=== PATIENT | female | born 1955 | race Caucasian/White ===

== ENCOUNTER 2016-09-13 12:02 | Emergency (ER) | payer MEDICAID, OTHER ==
[~2016-09-13] VITALS: Wt 71.0 kg
[2016-09-13] MEDS ORDERED: IBUP-1542 PO (12:59)
--- NOTE | 2016-09-13 13:10 | ERD ---
ER Documentation Chief Complaint Date/Time DATE: 09/13/16 TIME: 13:03 Chief Complaint left elbow and right knee pain after mechanical fall yesterday HPI 61-year-old female complaining of pain in her left elbow and right knee. Patient stated that she felt at home earlier today. She landed on her left elbow and right knee. She is able to bear weight and walk, with slight pain in the right knee. She is unable to move her left elbow because of pain. Patient reports noticing slight blood from the left nostril, she does not remember whether she had had in the fall. She denies loss of consciousness. Denies any prior medical history. ROS All systems reviewed and are negative except as per history of present illness. Medications Home Meds Active Scripts Ibuprofen* (Motrin*) 600 Mg Tab, 600 MG PO Q6H Y for PAIN AND OR ELEVATED TEMP, #30 TAB Prov:PAOLO FARRIS. ASSURANCE MANAGER 09/13/16 PMhx/Soc Medical and Surgical Hx: pt denies Medical Hx, pt denies Surgical Hx Hx Alcohol Use: No Hx Substance Use: No Hx Tobacco Use: No Smoking Status: Never smoker Physical Exam Vitals Vital Signs Date Time Temp Pulse Resp B/P Pulse Ox O2 Delivery O2 Flow Rate FiO2 09/13/16 12:08 98.0 71 18 171/80 99 Physical Exam General impression: Well-developed, well-nourished. Alert, oriented, in no acute distress Head: Normocephalic, atraumatic. Nasal bridge and orbits nontender. No step -offs, la signs or raccoon eyes. Eyes: PERRL, EOM normal. Sclerae are normal. Conjunctiva not injected. ENT: External canals patent. TM'sclear. Nasal mucosa, oral mucosa and oropharynx are normal. Very minor abrasion noted at the left nostril. Neck: Supple, nontender. No lymphadenopathy. No nuchal rigidity. Respiration: Normal respiratory effort. Lungs clear to auscultate bilaterally. No wheezes, rales or rhonchi. Cardiovascular: Regular rate and rhythm. No murmurs or extra heart sounds. Abdomen: Abdomen normal to inspection. Nontender. No masses or organomegaly. Bowel sounds normal. Back: Normal to inspection. No midline spine tenderness. No CVA tenderness. Extremities: 1 cm superficial abrasion noted on the superior aspect of the right knee. Bilateral knee nontender to palpation, normal range of motion. Left elbow slightly swollen, tender, in flexed position. Unable to extend fully due to pain. Neuro: Mental status normal, speech normal. MECHANICAL TEST ENGINEER grossly intact. Skin: Normal turgor. No rash or lesions. Psych: Normal mood and affect. Results 24 hrs PROCEDURE: XR Elbow. CLINICAL INDICATION: Trauma, left elbow pain TECHNIQUE: AP, lateral and oblique views of the left elbow performed. COMPARISON: None. FINDINGS: A large elbow joint effusion is present. No definite radiographic evidence of fracture is seen but cannot exclude occult fracture. Alignment is normal. IMPRESSION: 1. Large elbow joint effusion. Cannot exclude occult fracture in the setting of trauma, though no definite fracture is visualized. Recommend follow-up radiographs in 10-14 days for further evaluation, could also consider CT or MRI as clinically warranted. RPTAT: UU .Misael Brandon MD, MD Date Time Electronically viewed and signed by .Misael Brandon MD, MD on 09/13/2016 14: 34 .K/ CC: PAOLO FARRIS. NELDA Procedures/MDM Well-appearing 61-year-old female complaining of left elbow and right knee pain after fall. Her right knee exams are unremarkable, I doubt fractures or dislocations. X-ray of left elbow was obtained. X-rays showed large left elbow effusion, suspicious for occult fracture. Left elbow was immobilized with a long-arm splint. Patient was noted to be comfortable and neurovascularly intact both before and after the immobilization. Patient advised to follow-up with PCP for a [facility] referral. Patient appears well, stable for discharge and outpatient management. Medical decision making shared with patient and family. Education provided to patient and family. Patient and family expressed understanding of the plan. Medications on discharge: Ibuprofen. Follow-up: Primary care provider in 2-3 days or return to ED if worse. Departure Condition: Good Patient Instructions: Fall Prevention PAOLO FARRIS NP Sep 13, 2016 13:10
--- NOTE | 2016-09-13 14:34 | RADRPT ---
PROCEDURE: XR Elbow. CLINICAL INDICATION: Trauma, left elbow pain TECHNIQUE: AP, lateral and oblique views of the left elbow performed. COMPARISON: None. FINDINGS: A large elbow joint effusion is present. No definite radiographic evidence of fracture is seen but cannot exclude occult fracture. Alignment is normal. IMPRESSION: 1. Large elbow joint effusion. Cannot exclude occult fracture in the setting of trauma, though no d efinite fracture is visualized. Recommend follow-up radiographs in 10-14 days for further evaluatio n, could also consider CT or MRI as clinically warranted. RPTAT: UU .Misael Brandon MD, MD Date Time Electronically viewed and signed by .Misael Brandon MD, on 09/13/2016 14:34 .K/
== END 2016-09-13 16:11 | disposition home or self-care (01) ==
LOC: FTE 12:02
DX: S80.211A Abrasion, right knee, initial encounter (principal); W18.39XA Other fall on same level, initial encounter; Y92.009 Unspecified place in unspecified non-institutional (private) residence as the place of occurrence of the external cause
CPT/HCPCS: 29105; 73080; Z7502

== ENCOUNTER 2017-07-28 08:50 | Day surgery (SDC) | END 2017-07-28 16:24 | disposition home or self-care (01) ==